=== PATIENT | female | born 1950 | race Caucasian/White ===

== ENCOUNTER 2018-07-29 18:15 | Inpatient (IN) | payer MEDICAID ==
[2018-07-29] MEDS: morphine 4 MG/ML VIAL IV (22:59)
[2018-07-29] MEDS: SOD CHLORIDE 0.9% 500 ML IV (22:59)
[2018-07-29] MEDS: ONDANSETRON 4 MG INJ IV (22:59)
[2018-07-29 23:06] LABS: ADD MAN DIFF? NO
[2018-07-29 23:12] LABS: BASOPHILS % 0.5 % (0.0-2.0); EOSINOPHILS # 0.2 10^3/ul (0.0-0.5); EOSINOPHILS % 2.6 % (0.0-7.0); HEMATOCRIT 33.9 % (37.0-47.0); HEMOGLOBIN 10.7 g/dl (12.0-16.0); LYMPHOCYTES # 2.8 10^3/ul (0.8-2.9); LYMPHOCYTES % 37.3 % (15.0-51.0); MEAN CORPUSCULAR HEMOGLOBIN 27.5 pg (29.0-33.0); MEAN CORPUSCULAR HGB CONC 31.6 g/dl (32.0-37.0); MEAN CORPUSCULAR VOLUME 87.1 fl (82.0-101.0); MEAN PLATELET VOLUME 8.4 fl (7.4-10.4); MONOCYTE # 1.1 10^3/ul (0.3-0.9); MONOCYTES % 14.2 % (0.0-11.0); NEUTROPHIL # 3.3 10^3/ul (1.6-7.5); NEUTROPHILS % 44.2 % (39.0-77.0); PLATELET COUNT 493 10^3/UL (140-415); RED BLOOD COUNT 3.89 10^6/ul (4.20-5.40); RED CELL DISTRIBUTION WIDTH 14.1 % (11.5-14.5)
[2018-07-29 23:12] LABS: WHITE BLOOD COUNT 7.6 10^3/ul (4.8-10.8)
[2018-07-29 23:21] LABS: ADD UMIC YES; UR ASCORBIC ACID 40 mg/dL (NEGATIVE); UR BACTERIA FEW /HPF (NONE SEEN); UR BILIRUBIN (Dip) NEGATIVE (NEGATIVE); UR BLOOD (Dip) 1+ mg/dL (NEGATIVE); UR CLARITY TURBID (CLEAR); UR COLOR AMBER (YELLOW); UR GLUCOSE (Dip) NEGATIVE (NEGATIVE); UR KETONES (Dip) TRACE mg/dL (NEGATIVE); UR LEUKOCYTE ESTERASE (Dip) 2+ Leu/ul (NEGATIVE); UR NITRITE (Dip) NEGATIVE (NEGATIVE); UR RBC 25 /HPF (0-5); UR SPECIFIC GRAVITY (Dip) 1.017 (1.003-1.030); UR SQUAMOUS EPITHELIAL CELL FEW /HPF (FEW); UR TOTAL PROTEIN (Dip) 2+ mg/dl (NEGATIVE); UR UROBILINOGEN (Dip) NEGATIVE (NEGATIVE); UR WBC > 182 /HPF (0-5)
[2018-07-29 23:27] LABS: ALANINE AMINOTRANSFERASE 24 IU/L (13-69); ALBUMIN 3.1 g/dl (3.3-4.9); ALBUMIN/GLOBULIN RATIO 0.59; ALKALINE PHOSPHATASE 99 IU/L (42-121); ANION GAP 13 (8-16); ASPARTATE AMINO TRANSFERASE 24 IU/L (15-46); BILIRUBIN,INDIRECT 0.4 mg/dl (0-1.1); BILIRUBIN,TOTAL 0.4 mg/dl (0.2-1.3); BLOOD UREA NITROGEN 7 mg/dl (7-20); CALCIUM 9.1 mg/dl (8.4-10.2); CARBON DIOXIDE 27 mmol/L (21-31); CHLORIDE 100 mmol/L (97-110); CREATININE 0.62 mg/dl (0.44-1.00); GLUCOSE 122 mg/dl (70-220); LIPASE 61 U/L (23-300); POTASSIUM 3.8 mmol/L (3.5-5.1); SODIUM 136 mmol/L (135-144); TOTAL PROTEIN 8.3 g/dl (6.1-8.1)
[2018-07-29 23:30] LABS: INR 1.06; PROTIME 13.9 Sec (11.9-14.9); PT RATIO 1.1
[2018-07-29 23:31] LABS: PARTIAL THROMBOPLASTIN TIME 30.5 Sec (25.0-35.0)
[2018-07-29 23:38] LABS: TROPONIN-I < 0.012 ng/ml (0.000-0.120)
[2018-07-30] MEDS: CEFTRIAXONE 1 GM/50 ML (PMX) 50 ML IVPB ×3 (01:27→21:39)
[2018-07-30] MEDS ORDERED: ALBUTEROL/IPRATROPIUM (NEB) 3 ML AMP HHN (04:30)
[2018-07-30] MEDS ORDERED: NACL 0.9% 3 ML SYG IV (04:30)
[2018-07-30] MEDS ORDERED: ONDANSETRON 4 MG INJ IV (04:30)
[2018-07-30 07:31] LABS: ADD MAN DIFF? NO
[2018-07-30 07:34] LABS: BASOPHIL # 0.1 10^3/ul (0.0-0.1); BASOPHILS % 0.9 % (0.0-2.0); EOSINOPHILS # 0.1 10^3/ul (0.0-0.5); HEMATOCRIT 34.5 % (37.0-47.0); HEMOGLOBIN 10.6 g/dl (12.0-16.0); LYMPHOCYTES # 1.7 10^3/ul (0.8-2.9); LYMPHOCYTES % 24.8 % (15.0-51.0); MEAN CORPUSCULAR HEMOGLOBIN 27.7 pg (29.0-33.0); MEAN CORPUSCULAR HGB CONC 30.7 g/dl (32.0-37.0); MEAN CORPUSCULAR VOLUME 90.1 fl (82.0-101.0); MEAN PLATELET VOLUME 9.3 fl (7.4-10.4); MONOCYTES % 13.6 % (0.0-11.0); RED BLOOD COUNT 3.83 10^6/ul (4.20-5.40); RED CELL DISTRIBUTION WIDTH 14.4 % (11.5-14.5)
[2018-07-30 07:41] LABS: PLATELET COUNT 276 10^3/UL (140-415); POSITIVE DIFF @See below
[2018-07-30 07:58] LABS: ALANINE AMINOTRANSFERASE 25 IU/L (13-69); ALBUMIN 2.6 g/dl (3.3-4.9); ALKALINE PHOSPHATASE 72 IU/L (42-121); ANION GAP 11 (8-16); ASPARTATE AMINO TRANSFERASE 27 IU/L (15-46); BILIRUBIN,INDIRECT 0.3 mg/dl (0-1.1); BILIRUBIN,TOTAL 0.3 mg/dl (0.2-1.3); BLOOD UREA NITROGEN 6 mg/dl (7-20); CALCIUM 8.3 mg/dl (8.4-10.2); CARBON DIOXIDE 23 mmol/L (21-31); CHLORIDE 107 mmol/L (97-110); CREATININE 0.52 mg/dl (0.44-1.00); GLUCOSE 110 mg/dl (70-220); MAGNESIUM 1.9 mg/dl (1.7-2.5); PHOSPHORUS 4.3 mg/dl (2.5-4.9); POTASSIUM 4.3 mmol/L (3.5-5.1); SODIUM 137 mmol/L (135-144); TOTAL PROTEIN 6.9 g/dl (6.1-8.1)
[2018-07-30] MEDS: TAMSULOSIN (SR) 0.4 MG CAP PO (08:30)
[2018-07-30] MEDS: HEPARIN 5,000 UNIT/0.5 ML VIAL SC ×2 (08:32→21:41)
[2018-07-30] MEDS: SOD CHLORIDE 0.9% 1,000 ML IV ×2 (08:34→14:29)
[2018-07-30] MEDS: LIDOCAINE/MYLANTA 40 ML BTL PO (14:36)
[2018-07-30] MEDS: PANTOPRAZOLE 40 MG INJ IV (14:36)
[2018-07-30] MEDS: HYDROCODONE/APAP (5/325) TAB PO (23:37)
[2018-07-31] MEDS: SOD CHLORIDE 0.9% 1,000 ML IV ×3 (00:19→23:00)
[2018-07-31] MEDS: HYDROCODONE/APAP (5/325) TAB PO (00:27)
[2018-07-31] MEDS: PANTOPRAZOLE 40 MG INJ IV (05:35)
[2018-07-31 06:18] LABS: ADD MAN DIFF? NO
[2018-07-31 06:31] LABS: BASOPHILS % 0.4 % (0.0-2.0); EOSINOPHILS # 0.1 10^3/ul (0.0-0.5); EOSINOPHILS % 1.6 % (0.0-7.0); HEMATOCRIT 28.9 % (37.0-47.0); LYMPHOCYTES # 2.9 10^3/ul (0.8-2.9); LYMPHOCYTES % 41.3 % (15.0-51.0); MEAN CORPUSCULAR HEMOGLOBIN 27.4 pg (29.0-33.0); MEAN CORPUSCULAR HGB CONC 31.1 g/dl (32.0-37.0); MEAN CORPUSCULAR VOLUME 88.1 fl (82.0-101.0); MEAN PLATELET VOLUME 8.8 fl (7.4-10.4); MONOCYTE # 0.9 10^3/ul (0.3-0.9); MONOCYTES % 13.1 % (0.0-11.0); NEUTROPHILS % 42.7 % (39.0-77.0); PLATELET COUNT 384 10^3/UL (140-415); RED BLOOD COUNT 3.28 10^6/ul (4.20-5.40); RED CELL DISTRIBUTION WIDTH 14.1 % (11.5-14.5)
[2018-07-31] MEDS: TAMSULOSIN (SR) 0.4 MG CAP PO (08:10)
[2018-07-31] MEDS: CEFTRIAXONE 1 GM/50 ML (PMX) 50 ML IVPB ×2 (08:10→20:30)
[2018-07-31] MEDS: HEPARIN 5,000 UNIT/0.5 ML VIAL SC ×2 (08:14→20:30)
[2018-07-31] MEDS: HYDROCHLOROTHIAZIDE 25 MG TAB PO (08:20)
[2018-07-31 08:56] LABS: CHOL/HDL RATIO 3.9 RATIO; HDL CHOLESTEROL 18 mg/dl (35-98); LDL CHOLESTEROL,CALCULATED 43 mg/dl; TRIGLYCERIDES 49 mg/dl (0-149)
[2018-07-31 08:56] LABS: CHOLESTEROL 71 mg/dl (100-200)
[2018-07-31 09:02] LABS: ANION GAP 12 (8-16); BLOOD UREA NITROGEN 7 mg/dl (7-20); CALCIUM 7.9 mg/dl (8.4-10.2); CARBON DIOXIDE 24 mmol/L (21-31); CHLORIDE 107 mmol/L (97-110); CREATININE 0.56 mg/dl (0.44-1.00); GLUCOSE 95 mg/dl (70-220); MAGNESIUM 2.1 mg/dl (1.7-2.5); PHOSPHORUS 3.7 mg/dl (2.5-4.9); SODIUM 139 mmol/L (135-144)
[2018-07-31] MEDS: ACETAMINOPHEN 325 MG TAB PO (18:58)
[2018-08-01 04:48] LABS: HEMOGLOBIN A1C 6.8 % (0-5.9)
[2018-08-01] MEDS: PANTOPRAZOLE 40 MG INJ IV (05:17)
[2018-08-01] MEDS: SOD CHLORIDE 0.9% 1,000 ML IV ×2 (06:29→09:26)
[2018-08-01] MEDS: CEFTRIAXONE 1 GM/50 ML (PMX) 50 ML IVPB (08:12)
[2018-08-01] MEDS: TAMSULOSIN (SR) 0.4 MG CAP PO (08:13)
[2018-08-01] MEDS: HYDROCHLOROTHIAZIDE 25 MG TAB PO (08:13)
[2018-08-01] MEDS: HEPARIN 5,000 UNIT/0.5 ML VIAL SC (08:16)
[2018-08-01] MEDS: HYDROCODONE/APAP (5/325) TAB PO (08:21)
[2018-08-01] MEDS ORDERED: GLUCAGON 1 MG INJ IM (11:30)
[2018-08-01] MEDS ORDERED: DEXTROSE 50% 50 ML SYRINGE IV ×2 (11:30)
[2018-08-01] MEDS ORDERED: GLUCOSE GEL 15 GRAM TUBE BUCCAL (11:30)
[2018-08-01] MEDS ORDERED: GLUCOSE GEL 15 GRAM TUBE PO ×2 (11:30)
[2018-08-01] MEDS ORDERED: INSULIN ASPART [NOVOLOG] 3 ML PEN SC (11:40)
[2018-08-01] MEDS: MAGNESIUM HYDROXIDE 30ML CUP PO (13:21)
[2018-08-01] MEDS ORDERED: DOCUSATE SODIUM 100 MG CAP PO (21:00)
[2018-08-02] MEDS ORDERED: ACCU-CHEK XX (02:00)
[2018-08-02] MEDS ORDERED: metFORMIN 500 MG TAB PO (07:50)
[2018-08-02] MEDS ORDERED: LISINOPRIL 5 MG TAB PO (09:00)
== END 2018-08-01 20:15 | disposition home or self-care (01) | DRG 690 ==
LOC: E/R 18:15 → MS1 07-30 02:08
DX: N10 Acute pyelonephritis (principal); N20.0 Calculus of kidney; I10 Essential (primary) hypertension; E66.9 Obesity, unspecified; Z68.30 Body mass index [BMI] 30.0-30.9, adult; K21.9 Gastro-esophageal reflux disease without esophagitis
CPT/HCPCS: 71045; 74176; 80048; 80053; 80061; 81001; 83036; 83690; 83735; 84100; 84484; 85025; 85610; 85730; 87086; 93005